=== PATIENT | female | born 2000 | race Caucasian/White ===

== ENCOUNTER 2021-01-28 13:58 | Outpatient (REF) | payer MEDICAID, SELFPAY ==
[2021-01-28 16:00] LABS: SARS COV2 PCR INHOUSE NEGATIVE (Negative)
== END 2021-01-28 13:59 | disposition home or self-care (01) ==
LOC: HO.LAB 13:58
PROVIDERS: Visit Provider Internal Medicine
DX: Z20.822 Contact with and (suspected) exposure to COVID-19 (principal)
CPT/HCPCS: C9803; U0003

== ENCOUNTER 2021-02-02 14:50 | Outpatient (REF) | payer MEDICAID, SELFPAY ==
[2021-02-02 16:18] LABS: COVID-19 Test Positive (Negative)
== END 2021-02-02 14:51 | disposition home or self-care (01) ==
LOC: HO.LAB 14:50
PROVIDERS: Visit Provider Internal Medicine
DX: Z20.822 Contact with and (suspected) exposure to COVID-19 (principal)
CPT/HCPCS: 36415; 87635; C9803

== ENCOUNTER 2022-01-03 14:54 | Outpatient (REF) | payer MEDICAID, SELFPAY ==
[2022-01-03 15:44] LABS: COVID-19 Test Negative (Negative); IDNOW Serial# 08D9AD1C
== END 2022-01-03 14:55 | disposition home or self-care (01) ==
LOC: HO.LAB 14:54
PROVIDERS: Visit Provider Internal Medicine
DX: Z20.822 Contact with and (suspected) exposure to COVID-19 (principal)
CPT/HCPCS: 87635; C9803